=== PATIENT | male | born 1970 | race Caucasian/White ===

== ENCOUNTER 2019-07-08 04:29 | Emergency (ER) | payer SELFPAY ==
[~2019-07-08] VITALS: Ht 167.6 cm; Wt 83.9 kg
[2019-07-08 04:35] VITALS: BP 145/74
--- NOTE | 2019-07-08 04:35 | NUR ---
PT AMBULATED TO BED #5
--- NOTE | 2019-07-08 04:52 | NUR ---
49 YEAR OLD MALE COMPLAINS OF SORE THROAT X 3 DAYS. PATIENT STATES HE HAS WHITE MUCUS. PATIENT DENIES SOB OR ANY PAIN. PATIENT LUNGS CTABL, BREATHING EVEN AND UNLABORED, RR 18, SPO2 100%. TEMPERATURE 97.8. PATIENT AOX4, SKIN WARM AND DRY. BED IN LOWEST POSITION, LOCKED, BED RAIL UPX1. AT BEDSIDE. PMH - DM2, HTN MEDICATIONS - METFORMIN AND "BP MEDS" ALLERGIES - NKA
--- NOTE | 2019-07-08 04:52 | NUR ---
Note undone in EDM - 07/08/19 at 0500 by MEDGISSELL 49 YEAR OLD MALE COMPLAINS OF CHEST PAIN X 3 DAYS. PATIENT STATES HE HAS WHITE MUCUS. PATIENT DENIES SOB OR ANY PAIN. PATIENT LUNGS CTABL, BREATHING EVEN AND UNLABORED, RR 18, SPO2 100%. TEMPERATURE 97.8. PATIENT AOX4, SKIN WARM AND DRY. BED IN LOWEST POSITION, LOCKED, BED RAIL UPX1. AT BEDSIDE. PMH - DM2, HTN MEDICATIONS - METFORMIN AND "BP MEDS" ALLERGIES - NKA
[2019-07-08 06:11] VITALS: BP 145/74
--- NOTE | 2019-07-08 06:11 | NUR ---
DISCHARGE DONE BY DR CARRILLO. Patient discharged with v/s stable. Written and verbal after care instructions ABOUT VIRAL AND BACTERIAL PHARYNGITIS given and explained. Patient alert, oriented and verbalized understanding of instructions. Ambulatory with steady gait. All questions addressed prior to discharge. ID band removed. Patient advised to follow up with PMD. Rx of AUGMENTIN given. Patient educated on indication of medication including possible reaction and side effects. Opportunity to ask questions provided and answered.
== END 2019-07-08 06:11 | disposition home or self-care (01) ==
LOC: MED 04:29
DX: J02.9 Acute pharyngitis, unspecified (principal); E11.9 Type 2 diabetes mellitus without complications; I10 Essential (primary) hypertension
CPT/HCPCS: 99283